=== PATIENT | male | born 1945 | race Caucasian/White ===

== ENCOUNTER 2020-06-27 10:28 | Outpatient (REF) | payer BC, SELFPAY ==
[2020-06-27 14:12] LABS: Urine Cytology See Pathology rpt
== END 2020-06-27 10:29 | disposition home or self-care (01) ==
LOC: HO.LNP 10:28
PROVIDERS: PCP Pediatrics; Visit Provider Urology
DX: N20.0 Calculus of kidney (principal); D49.4 Neoplasm of unspecified behavior of bladder; N32.0 Bladder-neck obstruction
CPT/HCPCS: 52000; 81002; 88112

== ENCOUNTER → 2021-06-30 08:26 | Outpatient (BNVA) | payer MEDICARE, BC, SELFPAY | PROVIDERS: PCP Pediatrics; Visit Provider Urology | DX: Z13.89 Encounter for screening for other disorder (principal) | CPT/HCPCS: Q3014 ==

== ENCOUNTER → 2022-02-23 13:12 | Outpatient (BNVA) | payer MEDICARE, SELFPAY | PROVIDERS: PCP Pediatrics; Visit Provider Urology | DX: N32.0 Bladder-neck obstruction (principal) | CPT/HCPCS: 51798 ==

== ENCOUNTER 2022-06-08 09:49 | Outpatient (REF) | payer MEDICARE, SELFPAY ==
--- NOTE | ~2022-06-08 | US_ITS ---
EXAMINATION: US RETROPERITONEAL LIMITED (RENAL ONLY) CLINICAL INFORMATION: Calculus of kidney. COMPARISON: Renal ultrasound 05/20/2021 and 07/14/2020. TECHNIQUE: Real-time imaging of the kidneys. FINDINGS: RIGHT KIDNEY: 11.4 x 5.6 x 6.0 cm (SAG x AP x TRV). The kidney is normal in size, contour, and echogenicity. Renal cortical thickness is normal. No renal calculi or hydronephrosis. Simple cyst mid kidney measuring 2.0 cm. No imaging follow-up is recommended. LEFT KIDNEY: 11.9 x 4.9 x 5.1 cm (SAG x AP x TRV). The kidney is normal in size, contour, and echogenicity. Renal cortical thickness is normal. No renal calculi or hydronephrosis. Simple cyst mid kidney measuring 1.2 cm. Simple cyst mid kidney measuring 1.7 cm. No imaging follow-up is recommended. US/US renal BI IMPRESSION: No nephrolithiasis or hydronephrosis.
== END 2022-06-08 09:50 | disposition home or self-care (01) ==
LOC: HO.US 09:49
PROVIDERS: PCP Pediatrics; Visit Provider Urology
DX: N20.0 Calculus of kidney (principal)
CPT/HCPCS: 76775

== ENCOUNTER 2024-02-23 09:57 | Outpatient (REF) | payer MEDICARE, SELFPAY ==
[2024-02-23 17:02] LABS: Urine Cytology See Pathology rpt
== END 2024-02-23 09:58 | disposition home or self-care (01) ==
LOC: HO.LAB 09:57
PROVIDERS: PCP Pediatrics; Visit Provider Urology
DX: D49.4 Neoplasm of unspecified behavior of bladder (principal); N20.0 Calculus of kidney
CPT/HCPCS: 81003; 88112; 99212

== ENCOUNTER 2024-02-23 09:57 | Outpatient (AMB) | payer MEDICARE, SELFPAY ==
--- NOTE | 2024-02-23 09:58 | A.OFFVIS_ITS ---
Intake Visit Reasons: bladder spasms/hx of bladder Ca(last seen 2020) Intake Note: Patient is present for Re-evaluation patient was last seen 2021 Urology Med: None Antibiotic Allergy: None Blood Thinner: None Bladder Cancer: - Last Urine Cytology- 06/2020-Negative for high grade urothelial carcinoma - Last Cystoscopy- 06/2020 - Last Visit 2021- Pt was due for Cystoscopy for 12months after - Patient no showed for Cystoscopy 06/2022 Labs: 12/03/2023 -Hemoglobin A1C: 7.2(H) Sewer Required: No Accompanied by: Self / Same As Patient Allergies No Known Allergies Allergy (Verified 02/23/24 10:02) HPI Comments Details: Mr Price is a very pleasant male. They are a patient of Dr Fuchs. They are seen in the office today for the following urologic conditions. 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 Twelve month follow-up 3+ glucose UA secondary to Farxiga Uses urinal as required No further imaging of kidneys as has cysts but no stones 12 month follow-up office cysto Nephrolithiasis/Urolithiasis: They are here for further evaluation of nephrolithiasis. They present for evaluation of back pain none flank pain none abdominal pain none Urolithiasis was diagnosed 03/22 seen at [facility] CT with evidence of recent stone passage. Prior treatment(s) include observation. Prior imaging includes 03/22 , a CT (computed tomography) scan of the abdomen/pelvis (stone protocol) - left distal 3mm stone with mild hydro 05/24 , a renal ultrasound 1.6 cm cyst right, punctate stone left - 05/25 renal ultrasound right-sided cyst, punctate left stone 3 mm - 05/26 renal ultrasound bilateral renal cyst up to 1.5 cm, small question stone left, no progression since last year Current therapeutic plan will be to continue with imaging surveillance. Bladder Cancer: Initial diagnosis 2013 low-grade PSA 07/20 3.9 Cystoscopy negative. Bladder cancer was initially diagnosed during evaluation for gross hematuria - Dr Montes De Oca 2013. Bladder intervention(s) performed 2013 TURBT, with Mitomycin C, Ta noninvasive papillary carcinoma, Low Grade. Recurrence Risk per EORTC Low Risk. Bladder cancer risk factors Organic Solvent exposure No smoking Yes hair dye exposure No use of pioglitazone No chronic cystitis No prior chemotherapy with cyclophosphamide No family history of bladder cancer No pelvic radiation No Prior Cystoscopy 10/2015 , Negative 10/19 - rugae change on left base bladder - check on review 05/23 NAD 05/24 NAD, 05/25 NAD Prior Cytology 10/17 Negative for malignancy 07/20 , Negative for malignancy 11/19 , Negative for malignancy. Previous intravesical therapy none. 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 Surgical History History of surgery Review of Systems Const Denies chills and Denies fever(s) Card Reports no additional complaints and Denies syncope Resp Denies cough GI Denies abdominal pain and Denies heartburn Reports as per HPI and Denies change in libido Neuro Denies syncope Psych Denies change in libido Endo Denies change in libido Physical Exam Const General: cooperative, healthy appearing, comfortable and no acute distress Orientation/consciousness: patient oriented x3 HEENT Face and sinus: Yes normal facial exam Mouth: moist mucous membranes Neck Neck: Yes normal visual inspection, Yes full ROM and Yes trachea midline Chest Chest palpation & inspection: normal inspection of the chest Resp Effort & Inspection: normal respiratory effort, able to speak in complete sentences and no respiratory distress GI Inspection: Yes normal to inspection Back/Spine/Pelvis Cervical Spine: normal cervical lordosis Thoracic/Lumbar Spine: thoracic and lumbar spine normal to inspection Skin General skin exam: no rashes or lesions noted Neuro General: patient oriented x3, gait normal, tone normal and moves all extremities Extrem General: Yes normal to inspection and Yes capillary refill normal Results AMB Urinalysis, Automated UA Leukoctes 0 Rajeev/uL Last Edit by ROSETTA Pizarro on 02/23/24 10:08 UA Nitrite Negative Last Edit by ROSETTA Pizarro on 02/23/24 10:08 UA Urobilinogen 0.2 mg/dL Last Edit by ROSETTA Pizarro on 02/23/24 10:0 8 UA Protein 0 mg/dL Last Edit by ROSETTA Pizarro on 02/23/24 10:08 UA pH 6.0 Last Edit by ROSETTA Pizarro on 02/23/24 10:08 UA Blood 10 [place]/uL Last Edit by Shwetha Sandoval, RMA on 02/23/24 10:08 UA Specific [place] 1.020 Last Edit by Shwetha Sandoval, RMA on 02/23/24 10: 08 UA Ketone Negative Last Edit by Shwetha Sandoval, RMA on 02/23/24 10:08 UA Bilirubin 0 mg/dL Last Edit by Shwetha Sandoval, RMA on 02/23/24 10:08 UA Glucose 1000 mg/dL Last Edit by Shwetha Pantojaro, RMA on 02/23/24 10:08 Results Reviewed Results Reviewed: Laboratory Last Values Urine pH (Auto) 6.0 02/23/24 10:01 Specific [place] (Auto) 1.020 02/23/24 10:01 Urine Protein (Auto) 0 mg/dL 02/23/24 10:01 Glucose (UA)(Auto) 1000 mg/dL 02/23/24 10:01 Urine Ketones (Auto) Negative 02/23/24 10:01 Urine Blood (Auto) 10 [place]/uL 02/23/24 10:01 Urine Nitrite (Auto) Negative 02/23/24 10:01 Urine Bilirubin (Auto) 0 mg/dL 02/23/24 10:01 Urine Urobilinogen (Auto) 0.2 mg/dL 02/23/24 10:01 Leukocyte Esterase (Auto) 0 Rajeev/uL 02/23/24 10:01 Assessment & Plan Assessment & Plan (1) Bladder tumor: Code(s): D49.4 - Neoplasm of unspecified behavior of bladder Category: Medical (2) Nephrolithiasis: Code(s): N20.0 - Calculus of kidney Category: Medical Plan Twelve month follow-up cysto Orders: Orders Urine Cytology Today D49.4 - Neoplasm of unspecified behavior of bladder AMB Urinalysis Automated Today Z13.9 - Encounter for screening, unspecified Patient Instructions: Imaging studies, laboratory and physical exam results were discussed and reviewed in detail. No major barriers to patient understanding were identified. An opportunity to ask questions regarding the treatment plan was provided. All questions were answered. The patient expressed understanding and agreement with the above treatment plan. The patient is aware they should contact our office by phone for worsening of their current condition or the appearance of new urologic symptoms. Compliance is encouraged with any medications and followup testing that is ordered. It is a privilege to participate in the urologic care of your patient. If you have any questions or concerns regarding treatment for the above conditions, or other urologic issues, please do not hesitate to contact me. The office telephone contact is [phone]. This note is constructed using voice recognition software. While every effort has been made to ensure accuracy wreath and garland maker hand errors may have been included. Yours sincerely, Dr Steve Colby MD, [facility] - Urology Providers of Expert, Compassionate Care for the Genitourinary System Coding Level of Care Code Est Pt Level 4 (32925) Diagnoses Bladder tumor D49.4 Nephrolithiasis N20.0
== END 2024-02-23 10:21 | disposition home or self-care (01) ==
PROVIDERS: PCP Pediatrics; Visit Provider Urology
DX: D49.4 Neoplasm of unspecified behavior of bladder (principal); N20.0 Calculus of kidney; Z13.9 Encounter for screening, unspecified
CPT/HCPCS: 99214

== ENCOUNTER 2025-02-22 08:48 | Outpatient (REF) | payer MEDICARE, SELFPAY | END 2025-02-22 08:49 | disposition home or self-care (01) | LOC: HO.LAB 08:48 | PROVIDERS: PCP Pediatrics; Visit Provider Urology | DX: D49.4 Neoplasm of unspecified behavior of bladder (principal); N32.0 Bladder-neck obstruction; Z13.89 Encounter for screening for other disorder | CPT/HCPCS: 52000; 81003; 88112; 99212 ==

== ENCOUNTER 2025-02-22 08:48 | Outpatient (AMB) | payer MEDICARE, SELFPAY ==
--- OUTSIDE RECORDS SUMMARY | 2025-02-22 08:51 | XMS_ITS ---
Author Name [place] Organization Unknown Care Team Organization Name Specialty Phone Email Start Date End Da te [facility] Ritu Haas [facility] 04/12/2022
--- OUTSIDE RECORDS SUMMARY | 2025-02-22 08:51 | XMS_ITS | Clinical Summary ---
Author Organization [facility] ity Address [address] [place] [address] Care Team Providers [facility] Owner Name Role Phone Shi Fuchs MD Primary Care Provider Allergies No known active allergies Medications dapagliflozin propanediol (Farxiga) 5 mg tablet Take 1 tablet (5 mg total) by mouth 1 (one) time each day. 02/24/2022 Active lisinopril (PRINIVIL,ZESTRI L) 40 mg tablet Take 1 tablet (40 mg total) by mouth 1 (one) time each day. 10/27/2021 Active pravastatin (PRAVACHOL) 20 mg tablet Take 1 tablet (20 mg total) by mouth 1 (one) time each day. 10/27/2021 Active cyanocobalamin (VITAMIN B-12) 500 mcg tablet Take 1 tablet (500 mcg total) by mouth 1 (one) time each day. Active famotidine (PEPCID) 20 mg tablet Take 1 tablet (20 mg total) by mouth 2 (two) times a day. 04/29/2020 Active Active Problems Problem Noted Date Diagnosed Date Morbid obesity with BMI of 4 0.0-44.9, adult ([facility] V24, [facility] V28) 05/03/2024 Allergic rhinitis 10/02/2019 Memory loss 10/02/2019 Type 2 diabetes mellitus wit h chronic kidney disease, without long-term current use of insulin ([facility] V24, [facility] V28) 07/21/2017 Bronchospasm 08/23/2014 Overview (05/03/2024): 30 pack year smoker. Stopped approx 1999 CXR 09/16 COPD . PFT 09/16 (during illness) with reversibility rec repeat when stable. Hypercholesteremia 05/03/2012 Overview (05/03/2024): Intol lipitor 10 DM (diabetes mellitus), type 2 with peripheral vascular complications ([facility] V24, [facility] V28) 07/07/2009 Overview (05/03/2024): IGT 2009 Diabetes 09/16 Venous stasis Intol Metformin Non-specific colitis 11/05/2008 Overview (05/03/2024): 2008. ?Crohns. 03/21. Colonoscopy. No evidence of Crohns Bladder cancer ([facility] V24, [facility] V28) 2007 Overview (05/03/2024): [place] 10/15 TURBT Chronic liver disease 09/24/2005 Overview (05/03/2024): By CT 08/07 IMO update Kidney lesion 09/24/2005 Overview (05/03/2024): 08/[address] done by Urology Essential hypertension, benign 07/09/2005 Immunizations Immunization Administration Dates Next Due Influenza trivalent, 0.5mL ( Fluzone High-dose) 65yo and older 12/29/2019,12/08/2018,12/29/2017 Influenza trivalent, with pr eservative (Fluzone; Afluria) 6mo and older 03/13/2014,04/26/2013,02/03/2009 Pneumococcal conjugate 13 va lent (Prevnar 13, PCV13) 2mo and older 06/12/2015 Pneumococcal polysaccharide 23 valent (Pneumovax 23) 2yo and older 02/03/2009 Td Tetanus diptheria (Tdvax) 7yo and older 08/27 Tdap Tetanus diptheria acell ular pertussis (Boostrix; Adacel) 7yo and older 05/30/2013 Surgical History Surgery Date Site/Laterality Comments OTHER SURGICAL HISTORY 10/15 PROCEDURE: CT CYSTOTOMY EXCISION BLADDER TUMOR COLONOSCOPY 11/01/08 [facility] PROCEDURE: HISTORICAL COLONOSCOPY; COMMENT: Adenoma; small patch of colitis; bleeding hemorrhoids. Repeat in three years COLONOSCOPY W/ BIOPSIES 01/31/13 [facility] PROCEDURE: CT COLONOSCOPY STOMA W/BIOPSY SINGLE/MULTIPLE; COMMENT: multiple patches of colitis; repeat in 5 yrs COLONOSCOPY W/ POLYPECTOMY 03/13/2018 PROCEDURE: CT COLSC FLX W/RMVL OF TUMOR POLYP LESION SNARE TQ; COMMENT: adenomas and hemorrhoids; no patches of colitis. repeat in 5 yrs, if sufficiently healthy. 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; COMMENT: uses Viagra prn Obesity, unspecified 09/24/2005 DX:Obesity, unspecified Nonspecific (abnormal) findi ngs on radiological and other examination of abdominal area, including retroperitoneum 09/24/2005 DX:Nonspecific (abnormal) fi ndings on radiological and other examination of abdominal area, including retroperitoneum; COMMENT: 08/[address] done by Urology Unspecified chronic liver di sease without mention of alcohol 09/24/2005 DX:Unspecified chronic live r disease without mention of alcohol; COMMENT: By CT 08/07 Essential hypertension, benign D X:Essential hypertension, benign; COMMENT: untreated as he never started his med Diabetes mellitus type 2, co ntrolled, with complications (CMS/HCC V24, CMS/HCC V28) DX:Diabetes mellitus type 2, controlled, with complications (HCC) Family History Medical History Relation Name Comments Other cancer Father bladder Hypertension Sister 1 Blindness Neg Hx Cataracts Neg Hx Glaucoma Neg Hx Macular degeneration Neg Hx Strabismus Neg Hx Relation Name Status Comments Father Mother Sister 1 Sister 2 Alive Social History Tobacco Use Types Packs/Day Years Used Date Smoking Tobacco: Former Cigarettes 1 40.3 0 12/12/1959 - 04/04/2000 Smokeless Tobacco: Former Alcohol Use Standard Drinks/Week Comments Yes 0 (1 standard drink = 0.6 oz pur e alcohol) Sex and Gender Information Value Date Recorded Sex Assigned at Not on file Legal Sex Male 7:04 AM EST Gender Identity Not on file Sexual Orientation Not on file Obstetrics History Last Filed Vital Signs Vital Sign Reading Time Taken Comments Blood Pressure 114/88 02/10/2022 11:17 AM EST Pulse 89 02/10/2022 11:17 AM EST Temperature - - Respiratory Rate - - Oxygen Saturation - - Inhaled Oxygen Concentration - - Weight 124 kg (274 lb) 02/10/2022 11:17 AM EST Height 177.8 cm (5' 10 ) 02/10/2022 11:17 AM EST Body Mass Index 39.31 02/10/2022 11:17 AM EST Plan of Treatment Health Maintenance Due Date Last Done Comments Diabetes: Annual Foot Exam 06/28/1955 Diabetes: Annual Retina Eye Exam 06/28/1955 Zoster Vaccines (1 of 2) 06/28/1962 RSV Immunization Adult Patients (1 - 1-dose 75+ series) 06/28/2018 COVID-19 Vaccine (3 - Moderna risk series) 07/10/2020 06/12/2020, 05/15/2020 Falls Risk Assessment 03/13/2022 Medicare Annual Wellness Visit 03/13/2022 Social Influencers of Health Screening 03/13/2022 Diabetes: Blood Sugar Control Test (HGBA1C) 08/10/2022 02/10/2022 Diabetes: Annual Urine Albumin-Creatinine Ratio (uACR) 10/23/2022 10/23/2021 Diabetes: Annual GFR (Glomerular Filtration Rate) 10/23/2022 10/23/2021 Hypertension/CHF/CAD Annual BMP Blood Test 10/23/2022 10/23/2021 Colorectal Cancer Screening: Colonoscopy 03/13/2023 03/13/2018 DTaP,Tdap,and Td Vaccines (3 - Td or Tdap) 05/30/2023 05/30/2013, 08/27/2004 Depression Screening 04/04/2024 Influenza Vaccine (#1) 2024 , 12/29/2019, 12/08/2018, Additional history exists Cholesterol Screening (Lipid Panel) 02/10/2027 02/10/2022 Pneumococcal Vaccine: 50+ Years Completed 06/12/2015, 02/03/2009 HIB Vaccines Aged Out No longer eligi ble based on patient's age to complete this topic HPV Vaccines Aged Out No longer eligi ble based on patient's age to complete this topic Hepatitis A Vaccines Aged Out No long er eligible based on patient's age to complete this topic Hepatitis B Vaccines Aged Out No long er eligible based on patient's age to complete this topic IPV Vaccines Aged Out No longer eligi ble based on patient's age to complete this topic MMR Vaccines Aged Out No longer eligi ble based on patient's age to complete this topic Meningococcal ACWY Vaccine Aged Out N o longer eligible based on patient's age to complete this topic Meningococcal B Vaccine Aged Out No l onger eligible based on patient's age to complete this topic RSV Immunization Patients Under 20 months Aged Out No longer eligible based on patient's age to complete this topic Varicella Vaccines Aged Out No longer eligible based on patient's age to complete this topic Procedures Procedure Name Priority Date/Time Associated Diagnosis Comments HEMOGLOBIN A1C Routine 02/10/2022 LIPID PANEL Routine 02/10/2022 URINE ALBUMIN CREATININE RATIO Routine 10/23/2021 ANNUAL BMP BLOOD TEST Routine 10/23/2021 COLONOSCOPY Routine 03/13/2018 from Last 3 Months or Most Recently Relevant to Health Maintenance Results * (ABNORMAL) Hemoglobin A1c (02/10/2022) Pathologist [facility] Hemoglobin A1C 9.8(A) <=6.5 % Blood Venous blood specimen / Unknown Result [facility] Provider LAB BLOOD ORDERABLES Sara l Result * Lipid panel (02/10/2022) [facility] LDL/HDL Ratio 4 0 - 4 Triglycerides 141 0 - 150 mg/dL Cholesterol 178 0 - 200 mg/dL HDL 51 >=40 mg/dL LDL Cholesterol 99 0 - 100 mg/dL Blood Venous blood specimen / Unknown [facility] Provider LAB BLOOD ORDERABLES Sara l Result * Urine Albumin Creatinine Ratio (10/23/2021) Pathologist [facility] Urine Albumin Creatinine Ratio Abstracted Result [facility] Provider HEALTH MAINTENANCE Final Result * Annual BMP Blood Test (10/23/2021) Pathologist [facility] Annual BMP Blood Test Abstracted [facility] Provider HEALTH MAINTENANCE Final Result * Colonoscopy (03/13/2018) Colonoscopy Abstracted, Positive Anatomical Region Laterality Modality Other Historical Provider HEALTH MAINTENANCE Final Result from Last 3 Months or Most Recently Relevant to Health Maintenance Care Teams [facility] Owner Relationship Specialty Start Date End Date Shi Fuchs MD [address] [place] [address] PCP - General 06/25/1997
--- NOTE | 2025-02-22 09:02 | MHC.OFFVIS ---
Intake Visit Reasons: cysto(Hx Bladder Ca) Intake Note: Patient Is Present for Cystoscopy Urology Med: None Antibiotic Allergy: None Blood Thinner: None Last Cytology: 2023 URO G-HD Cytoscope lot: [id number] exp:09/11/2027 Retail Specialist Required: No Accompanied by: Self / Same As Patient Allergies No Known Allergies Allergy (Verified 02/22/25 09:06) HPI Comments Details: Mr Price is a very pleasant male. They are a patient of Dr Fuchs. They are seen in the office today for the following urologic conditions. 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 Twelve month follow-up 3+ glucose UA secondary to Farxiga Cystoscopy with small bladder lesions seen on dome of bladder Plan TURBT Nephrolithiasis/Urolithiasis: They are here for further evaluation of nephrolithiasis. They present for evaluation of back pain none flank pain none abdominal pain none Urolithiasis was diagnosed 03/22 seen at [facility] ER CT with evidence of recent stone passage. Prior treatment(s) include observation. Prior imaging includes 03/22 , a CT (computed tomography) scan of the abdomen/pelvis (stone protocol) - left distal 3mm stone with mild hydro 05/24 , a renal ultrasound 1.6 cm cyst right, punctate stone left - 05/25 renal ultrasound right-sided cyst, punctate left stone 3 mm - 05/26 renal ultrasound bilateral renal cyst up to 1.5 cm, small question stone left, no progression since last year Current therapeutic plan will be to continue with imaging surveillance. Bladder Cancer: Initial diagnosis 2013 low-grade PSA 07/20 3.9 Cystoscopy negative. Bladder cancer was initially diagnosed during evaluation for gross hematuria - Dr Montes De Oca 2013. Bladder intervention(s) performed 2013 TURBT, with Mitomycin C, Ta noninvasive papillary carcinoma, Low Grade. Recurrence Risk per EORTC Low Risk. Bladder cancer risk factors Organic Solvent exposure No smoking Yes hair dye exposure No use of pioglitazone No chronic cystitis No prior chemotherapy with cyclophosphamide No family history of bladder cancer No pelvic radiation No Prior Cystoscopy 10/2015 , Negative 10/19 - rugae change on left base bladder - check on review 05/23 NAD 05/24 NAD, 05/25 NAD Prior Cytology 10/17 Negative for malignancy 07/20 , Negative for malignancy 11/19 , Negative for malignancy. 02/25 - atypical Previous intravesical therapy none. 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 Surgical History History of surgery Review of Systems Const Denies chills and Denies fever(s) Card Reports no additional complaints and Denies syncope Resp Denies cough GI Denies abdominal pain and Denies heartburn Reports as per HPI and Denies change in libido Neuro Denies syncope Psych Denies change in libido Endo Denies change in libido Physical Exam Const General: cooperative, healthy appearing, comfortable and no acute distress Orientation/consciousness: patient oriented x3 HEENT Face and sinus: Yes normal facial exam Mouth: moist mucous membranes Neck Neck: Yes normal visual inspection, Yes full ROM and Yes trachea midline Chest Chest palpation & inspection: normal inspection of the chest Resp Effort & Inspection: normal respiratory effort, able to speak in complete sentences and no respiratory distress GI Inspection: Yes normal to inspection Back/Spine/Pelvis Cervical Spine: normal cervical lordosis Thoracic/Lumbar Spine: thoracic and lumbar spine normal to inspection Skin General skin exam: no rashes or lesions noted Neuro General: patient oriented x3, gait normal, tone normal and moves all extremities Extrem General: Yes normal to inspection and Yes capillary refill normal Office Procedures Cystoscopy Consent Discussed risk and benefit or proposed procedure with the patient. Information consent for procedure given to the patient. Discussed technical aspects, risks, benefits and alternatives in full. Addressed all of the patient's questions and concerns regarding the procedure. The patient demonstrated knowledge and understanding. They wish to proceed with this procedure. Preparation The patient was prepped in the usual manner. A human resource advisor was present and in the room. Genitalia was prepped with betadine solution in a sterile manner. Lidocaine Jelly 2% was placed into the urethra and 16Fr flexible Olympus cystoscope was inserted into the meatus after adequate lubrication. Procedure Consent confirmed Cystoscopy performed using a disposable Avimotovue digital 16 Mohawk cystoscope. Meatus circumcised Urethra anterior and posterior urethra normal Prostatic Urethra unremarkable Bladder examination with retroflexion of cystoscope Bladder Orifices normal shape and position Bladder Capacity Normal Trabeculations grade 1 Cellule Formation yes Diverticulum Formation None Mucosal Erythema None Bladder Tumor recurrent small lesion dome bladder right side 2 cm [id number] DISPOSABLE SCOPE URO-G FLEXIBLE SCOPE Procedure code (CPT) selection complete Office Meds lidocaine HCl 2 % mucosal jelly in applicator Performing Provider: Steve Colby MD Performing Location[place] [facility] [place] [facility] Administered by: Royce Rosa LPN on 02/22/25 09:20 Dose Route Admin Location Dispensed Lot Number Expiration Date ND Cardiology Clinical Nurse Specialist 10 mL intra-urethral 10 mL nitrofurantoin monohydrate/macrocrystals 100 mg capsule Performing Provider: Steve Colby MD Performing Location: [facility] [place] [facility] Administered by: Royce Rosa LPN on 02/22/25 09:20 Dose Route Admin Location Dispensed Lot Number Expiration Date NDC Cardiology Clinical Nurse Specialist 100 mg PO 1 cap Results AMB Urinalysis, Automated UA Leukoctes 0 Rajeev/uL Last Edit by Shwetha Sandoval [facility] on 02/22/25 09:14 UA Nitrite Negative Last Edit by Shwetha Sandoval [facility] on 02/22/25 09:14 UA Urobilinogen 0.2 mg/dL Last Edit by Shwetha Sandoval [facility] on 02/22/25 09:14 UA Protein 0 mg/dL Last Edit by Shwetha Sandoval [facility] on 02/22/25 09:14 UA pH 6.0 Last Edit by Shwetha Sandoval [facility] on 02/22/25 09:14 UA Blood 200 Cortez/uL Last Edit by Shwetha Sandoval [facility] on 02/22/25 09:14 UA Specific Serafina 1.020 Last Edit by Shwetha Sandoval [facility] on 02/22/25 09:14 UA Ketone Negative Last Edit by Shwetha Sandoval [facility] on 02/22/25 09:14 UA Bilirubin 0 mg/dL Last Edit by Shwetha Sandoval [facility] on 02/22/25 09:14 UA Glucose 500 mg/dL Last Edit by Shwetha Sandoval [facility] on 02/22/25 09:14 Results Reviewed Results Reviewed: Laboratory Last Values Urine pH (Auto) 6.0 02/22/25 09:06 Specific Serafina (Auto) 1.020 02/22/25 09:06 Urine Protein (Auto) 0 mg/dL 02/22/25 09:06 Glucose (UA)(Auto) 500 mg/dL 02/22/25 09:06 Urine Ketones (Auto) Negative 02/22/25 09:06 Urine Blood (Auto) 200 Cortez/uL 02/22/25 09:06 Urine Nitrite (Auto) Negative 02/22/25 09:06 Urine Bilirubin (Auto) 0 mg/dL 02/22/25 09:06 Urine Urobilinogen (Auto) 0.2 mg/dL 02/22/25 09:06 Leukocyte Esterase (Auto) 0 Rajeev/uL 02/22/25 09:06 Assessment & Plan Assessment & Plan (1) Bladder tumor: Code(s): D49.4 - Neoplasm of unspecified behavior of bladder Category: Medical Plan Transurethral resection of bladder tumor with/without adjuvant cytotoxic bladder installation We discussed the nature of the decision and reasonable options for performing the above surgery. Interventions include TURBT with or without intravesical administration of immunotherapy or cytotoxic medication. The relative uncertainties and benefits related to each alternate procedure were adequately discussed. General surgical risks including, but not limited to, pain, bleeding, infection, myocardial infarction, pulmonary embolus, deep vein thrombosis and cerebrovascular accident which may result in further hospitalization were discussed. Full disclosure of the procedure as well as all major risks, benefits and complications were discussed including but not limited to damage to the urethra or bladder neck, need for ureteric stenting, perforation of the bladder, chemical cystitis, chemical peritonitis, epididymitis, and meatal stenosis. The success rate of the procedure was discussed. Success of the procedure in the short-term does not necessarily guarantee that long-term success will be maintained. Suitable follow up will need to be maintained. The patient showed understanding of discussion and wishes to proceed as above. TURBT with mitomycin-C cytarabine installation Orders: Orders Urine Cytology Today D49.4 - Neoplasm of unspecified behavior of bladder AMB Cystoscopy Today D49.4 - Neoplasm of unspecified behavior of bladder, N32.0 - Bladder-neck obstruction AMB Urinalysis Automated Today Z13.9 - Encounter for screening, unspecified Patient Instructions: This note is constructed using voice recognition software. While every effort has been made to ensure accuracy tassel snipper errors may have been included. Imaging studies, laboratory and physical exam results were discussed and reviewed in detail. No major barriers to patient understanding were identified. An opportunity to ask questions regarding the treatment plan was provided. All questions were answered. The patient expressed understanding and agreement with the above treatment plan. The patient is aware they should contact our office by phone for worsening of their current condition or the appearance of new urologic symptoms. Compliance is encouraged with any medications and followup testing that is ordered. It is a privilege to participate in the urologic care of your patient. If you have any questions or concerns regarding treatment for the above conditions, or other urologic issues, please do not hesitate to contact me. The office telephone contact is [phone]. Sincerely, Dr Steve Colby MD, [facility] - Urology Compassionate Specialist Care for the Genitourinary System Coding Level of Care Code Est Pt Level 4 (61231) Diagnoses Bladder tumor D49.4 CPT Codes Cystoscopy - CPT: 31493-[id number] ([id number])
== END 2025-02-22 09:44 | disposition home or self-care (01) ==
LOC: HO.HUSH 08:49
PROVIDERS: PCP Pediatrics; Visit Provider Urology
DX: D49.4 Neoplasm of unspecified behavior of bladder (principal); N32.0 Bladder-neck obstruction; Z13.9 Encounter for screening, unspecified
CPT/HCPCS: 52000; 99214

== ENCOUNTER → 2025-03-12 08:40 | Outpatient (BNVA) | payer MEDICARE, SELFPAY | PROVIDERS: PCP Pediatrics; Visit Provider Urology | DX: N32.0 Bladder-neck obstruction (principal) | CPT/HCPCS: 51700; 51798 ==